=== PATIENT | female | born 1985 | race Caucasian/White ===

== ENCOUNTER 2017-02-02 02:07 | Emergency (ER) | payer MEDICAID, OTHER ==
[~2017-02-02] VITALS: Ht 160 cm; Wt 53.5 kg
[2017-02-02 02:16] VITALS: Ht 160 cm; Wt 53.5 kg
--- NOTE | 2017-02-02 03:25 | ERD ---
ER Documentation Chief Complaint Date/Time DATE: 02/02/17 TIME: 03:23 Chief Complaint toothache after dental cleaning today HPI 31-year-old female presents here in emergency department for complaints of left upper gum bleeding after dental cleaning yesterday. Patient is complaining of pain sharp pain, 4/10 scale, no better or worse with anything. Patient is unable to sleep because of the bleeding. ROS All systems reviewed and are negative except as per history of present illness. Medications Home Meds Reported Medications [none] Unknown Strength No Conflict Check 02/02/17 Allergies Allergies: Coded Allergies: No Known Allergy (Unverified , 02/02/17) PMhx/Soc Medical and Surgical Hx: pt denies Medical Hx, pt denies Surgical Hx Hx Alcohol Use: No Hx Substance Use: No Hx Tobacco Use: No Smoking Status: Never smoker FmHx Family History: No coronary disease, No diabetes, No other Physical Exam Vitals Vital Signs Date Time Temp Pulse Resp B/P Pulse Ox O2 Delivery O2 Flow Rate FiO2 02/02/17 02:16 97.7 74 20 110/65 98 Physical Exam GENERAL: The patient is well developed and appropriate for usual state of health, in no apparent distress. HEENT: Atraumatic. Ears: Normal tympanic membrane, no erythema or bulging. No ear canal swelling. No ear discharge. Nose: normal nasal turbinates, no erythema or swelling. Normal nasal discharge. Throat: oropharynx clear. No tonsillar swelling or tonsillar exudates. No lymphadenopathy. Noted left upper molar gingival area to be bleeding. CHEST: Clear to auscultation bilaterally. There are no rales, wheezes or rhonchi. HEART: Regular rate and rhythm. No murmurs, clicks, rubs or gallops. No S3 or S4. ABDOMEN: Soft, nontender and nondistended. Good bowel sounds. No rebound or guarding. No gross peritonitis. No gross organomegaly or masses. No Qureshi sign or McBurney point tenderness. BACK: No midline or flank tenderness. EXTREMITIES: Equal pulses bilaterally. There is no peripheral clubbing, cyanosis or edema. No focal swelling or erythema. Full range of motion. Grossly neurovascularly intact. NEURO: Alert and oriented. Cranial nerves 2-12 intact. Motor strength in all 4 extremities with 5/5 strength. Sensation grossly intact. Normal speech and gait. SKIN: There is no apparent rash or petechia. The skin is warm and dry. HEMATOLOGIC AND LYMPHATIC: There is no evidence of excessive bruising or lymphedema. No gross cervical, axillary, or inguinal lymphadenopathy. Results 24 hrs Procedure note: After patient's verbal consent, and ice was applied in the left gum area, also patient was advised to clenched teeth onto a teabag. Patient tolerated procedure well, bleeding is controlled afterwards. Procedures/MDM Medical decision making: Patient's gum bleeding most likely from the procedure, no symptoms of any coagulopathies at this time, no other bleeding symptoms. Laboratory testing are not indicated at this time. After procedure done in the emergency Department bleeding has stopped. Patient verbalizing much better. Patient was advised to see dentist tomorrow, patient is advised to return to emergency department for any worsening the history Departure Diagnosis: Primary Impression: Gums, bleeding SHELLY LANDRY NP February 02, 2017 03:25
== END 2017-02-02 04:35 | disposition home or self-care (01) ==
LOC: FTE 02:07
DX: K06.8 Other specified disorders of gingiva and edentulous alveolar ridge (principal)
CPT/HCPCS: 99282